=== PATIENT | male | born 1980 | race Caucasian/White ===

== ENCOUNTER → 2016-07-05 | Outpatient (CLI) | payer OTHER ==
[~2016-07-05] MED LIST: aristocort TP
--- NOTE | 2016-07-05 10:16 | Diagnostic Imaging Report ---
Left upper extremity arterial vascular ultrasound. INDICATION: Decreased blood pressure in the left arm compared to the right arm. FINDINGS: There are monophasic waveforms throughout the left upper extremity arteries with velocities in the range of 50 to 62 cm/s from the subclavian artery to the brachial artery. The radial artery demonstrates diminished velocities of 26 to 28 cm/s. The ulnar artery velocities are 40 to 50 cm/s. There is also diminished velocity in the left CCA with monophasic waveform demonstrated. IMPRESSION: Diffuse abnormal monophasic waveforms in the left upper extremity arteries. The findings are concerning for a central arterial stenosis. Further evaluation with CTA of the neck to include the aortic arch is recommended. Report was stat faxed to office of Jojo Cooney APRN, @ 10:11 AM/amaya. Dictated by: Dictated on workstation # [id number]
== END ==
LOC: RAD 08:50
PROVIDERS: ATTEND Nurse Practitioner Family
DX: R09.89 Other specified symptoms and signs involving the circulatory and respiratory systems (principal); R94.39 Abnormal result of other cardiovascular function study
CPT/HCPCS: 93931

== ENCOUNTER → 2016-07-18 | Outpatient (CLI) | payer OTHER ==
[~2016-07-18] MED LIST changes: +CATHETER FLUSH 10 ML SYR IV PRN; +IOHEXOL 350 MG/ML 150 ML (OMNIPAQUE 350) VIAL IV ONE; +NS 100 ML (IVPB) BAG IV ONE
--- NOTE | 2016-07-18 11:01 | Diagnostic Imaging Report ---
CT angiogram of the neck. Thin section axial, with coronal and sagittal MIP technique reconstruction images are performed. INDICATION: Abnormal waveforms in the left upper extremity duplex ultrasound. 75 mL of Omnipaque 350 is administered intravenously. 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 There is an incomplete marrow imaging branch pattern with right subclavian and right common carotid arteries arising from the right-sided arch. The left common carotid and the left subclavian artery origin from the arch are absent. There is collateral flow that appears to be originating from intercostal vessels that reconstitute the mid left subclavian artery. The mid and distal left subclavian artery are intact. There is also reconstitution of the left common carotid artery from these collaterals which is small in caliber and terminates as the left external carotid artery. 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 The right common, internal and external carotid arteries appear normal. The right vertebral artery is dominant and is relatively large vessel. The left vertebral artery is relatively small and fills with contrast possibly in a retrograde fashion and may contribute to the collateral flow into the left subclavian and left common carotid artery. Soft tissues of the neck demonstrate no definite abnormality. The internal jugular veins appear patent. IMPRESSION: 1. 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 The proximal left subclavian and left common carotid arteries are absent with collateral flow through intercostal arteries and possible retrograde flow in the left vertebral artery filling the mid left subclavian and left common carotid artery. Left common carotid artery continues as an external carotid with absent left internal carotid artery. 2. CTA chest and if indicated abdomen and pelvis with runoffs, echocardiogram, and limited duplex vascular ultrasound of the neck to assess the direction of flow in the left vertebral artery are suggested. The findings were called to Dr. Verdin by Dr. Brody at time of dictation. Dictated by: Dictated on workstation # [id number]
--- NOTE | 2016-07-18 11:54 | Diagnostic Imaging Report ---
PROCEDURE: CT left upper extremity with contrast. TECHNIQUE: Axial images were obtained through the left upper extremity after intravenous contrast and reformatted into coronal and sagittal MIP technique oblique planes. INDICATION: Poor pulse and blood pressure measurements in the left upper extremity. FINDINGS: There are collaterals probably from the intercostal vessels and from the potentially retrogradely flowing left vertebral artery filling at the mid left subclavian artery. The proximal left subclavian artery is absent. The left axillary, and brachial arteries are patent and appear normal. The radial and ulnar arteries are poorly opacified with no gross abnormality seen. IMPRESSION: Absent proximal left subclavian artery with collateral flow filling the mid to distal left subclavian artery from intercostal vessels and probable retrograde flow in the left vertebral artery. Dictated by: Dictated on workstation # [id number]
== END ==
LOC: RAD 08:07
PROVIDERS: ATTEND Nurse Practitioner Family
DX: I77.1 Stricture of artery (principal); Z72.0 Tobacco use
CPT/HCPCS: 70498; 73201

== ENCOUNTER → 2016-07-20 | Outpatient (CLI) | payer OTHER ==
[2016-07-20 09:36] LABS: BLOOD UREA NITROGEN 9 MG/DL (7-18); BUN/CREATININE RATIO 10; CREATININE SERUM 0.91 MG/DL (0.60-1.30); GFR ESTIMATED > 60
--- NOTE | 2016-07-20 13:35 | Diagnostic Imaging Report ---
PROCEDURE: CT angiography of the chest with contrast. TECHNIQUE: Multiple contiguous axial images were obtained through the chest after uneventful bolus administration of intravenous contrast. Reconstructed CTA MIP acquisitions were also performed. INDICATION: Leg cramps. Poor blood pressure measurements on the left upper extremity. FINDINGS: There is an anomaly with the right-sided aortic arch and incomplete imaging branching pattern of the great vessels consisting of a right common carotid artery and a right subclavian artery arising separately from the arch with absent left common carotid and left subclavian proximal segments. There is reconstitution of the mid to distal left subclavian and small left common carotid artery from intercostal collaterals and suggestion of collateral flow from probable retrograde flow in the left vertebral artery. The tricuspid valve area is not well seen. This is however a non-gated exam and evaluation with echocardiogram is suggested. The heart is in the midline. The descending thoracic aorta is to the right of the midline in the thorax and becomes at midline at the thoracolumbar junction. There is no mediastinal mass or lymphadenopathy in the mediastinum, liban or axilla. The superior vena cava and the pulmonary arteries appear grossly unremarkable. The pulmonary veins appear grossly unremarkable. The lungs demonstrate minimal groundglass subpleural opacities posteriorly in dependent regions related to minimal atelectasis with no significant abnormality seen otherwise. The osseous structures demonstrate minimal Schmorl's nodes at the thoracic spine disc levels. IMPRESSION: 1. 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 The left common carotid artery and the left subclavian artery proximal segments are completely absent with reconstitution of flow from intercostal collaterals and probable contribution from the left vertebral artery which probably has retrograde flow. This can be verified with a limited neck vascular ultrasound of this artery. 2. Poor visualization of the tricuspid valve area. This is however a non-gated exam and no definite abnormality is seen. Correlation with echocardiogram is suggested. Dictated by: Dictated on workstation # [id number]
--- NOTE | 2016-07-20 16:47 | Diagnostic Imaging Report ---
EXAMINATION: CTA of the abdomen and pelvis with bilateral lower extremity runoff. TECHNIQUE: Thin section axial with coronal MIP image reconstructions are performed. 150 mL of Omnipaque 350 is administered intravenously. INDICATION: Arch anomalies and unequal arm pressure. Right leg cramps for three weeks. FINDINGS: CTA ABDOMEN AND PELVIS: The abdominal aorta is normal in caliber and enhancement. The celiac trunk, SMA, and the renal arteries as well as the CLIVE are all within normal limits. The internal, external and common iliac arteries are within normal limits. The soft tissues demonstrate a small fat-containing umbilical hernia. No bowel obstruction. The liver, the spleen, the gallbladder, the pancreas, the adrenal glands and the kidneys appear grossly unremarkable with normal situs seen. A few diverticula in the sigmoid colon are noted. The urinary bladder appears unremarkable. CTA LOWER EXTREMITY: RIGHT LOWER EXTREMITY RUNOFF: The right BRASS BURNISHER is normal. The profunda femoris is patent. The SFA appears normal. The popliteal artery is also normal. The anterior tibial artery demonstrates no definite abnormality. Motion artifact in the mid leg and small caliber with minimal opacification distally limits evaluation of the distal vessels. The peroneal artery is small in caliber with motion artifact and poor contrast filling does not allow accurate evaluation of the distal segments. The posterior tibial artery also appears normal with motion artifact noted. It appears patent to the foot. LEFT LOWER EXTREMITY CTA: The BRASS BURNISHER is normal. The profunda femoris is patent. The SFA appear unremarkable. The popliteal artery is unremarkable. The anterior tibial artery demonstrates patency with motion artifact in the mid leg limiting accurate evaluation. The peroneal artery also appears patent proximally as well as the posterior tibial artery with mid calf artifacts due to motion limitation seen. The distal posterior tibial artery is patent to the foot. IMPRESSION: CTA ABDOMEN AND PELVIS: Unremarkable exam. CTA BILATERAL LOWER EXTREMITIES: No definite abnormality. There is motion artifact in the mid and lower calf levels with less than optimal contrast filling of the distal tibial vessels seen however. Dictated by: Dictated on workstation # [id number]
== END ==
LOC: RAD 08:53
PROVIDERS: ATTEND Nurse Practitioner Family
DX: I77.1 Stricture of artery (principal); Z72.0 Tobacco use; Q25.40 Congenital malformation of aorta unspecified
CPT/HCPCS: 36415; 71275; 75635; 82565; 84520

== ENCOUNTER → 2016-08-02 | Outpatient (CLI) | payer OTHER ==
[~2016-08-02] MED LIST changes: -CATHETER FLUSH 10 ML SYR IV PRN; -IOHEXOL 350 MG/ML 150 ML (OMNIPAQUE 350) VIAL IV ONE; -NS 100 ML (IVPB) BAG IV ONE
--- NOTE | 2016-08-04 09:31 | ECHOCARDIOGRAPHY REPORT ---
DATE OF SERVICE: 08/02/2016 PROCEDURE: Echocardiography. DATE OF SERVICE: 08/02/2016. ORDERING PHYSICIAN: Dr. Verdin. PRIMARY PHYSICIAN: Dr. Ji. CLINICAL DIAGNOSIS: Abnormality of the aortic arch. MEASUREMENTS: Left atrium: 3.2. Aortic root: 4.0. LV diameter diastolic: 4.4. IVF thickness, diastolic: 1.1. LVPW thickness, diastolic: 1.1. DESCRIPTION: Two-dimensional echocardiography shows normal global left ventricular systolic function and normal regional wall motion. Aortic, mitral and tricuspid valve leaflets show good leaflet excursion. Aortic valve appears to be trileaflet. There is mild dilatation of the aortic root. Doppler imaging shows no significant valvular stenosis. There does not appear to be significant valvular regurgitation. There is no evidence of significant intracardiac shunt on this transthoracic echocardiographic study. Inferior vena cava is of normal size and exhibits inspiratory collapse. Pulmonary artery systolic pressure could not be reliably estimated on this study. CONCLUSIONS: 1. Normal global left ventricular systolic function with ejection fraction approximately 60%. 2. Mild dilation of the aortic root. 3. No evidence of significant valvular regurgitation or stenosis. Job ID: [id number] DocumentID: [id number] Dictated Date: 08/03/2016 11:39:27 Telephone Solicitor Supervisor Date: 08/03/2016 14:46:23 Dictated By: ALISSA VERDIN MD, MA, FACP, FACC,
== END ==
LOC: CARD 14:28
PROVIDERS: ATTEND Internal Medicine Cardiovascular Disease
DX: I77.1 Stricture of artery (principal); Z72.0 Tobacco use
CPT/HCPCS: 93306